=== PATIENT | female | born 1950 | race Two or more races ===

== ENCOUNTER → 2017-06-18 | Outpatient (CLI) | payer OTHER ==
[~2017-06-18] VITALS: Ht 165.1 cm; Wt 95.3 kg
[~2017-06-18] MED LIST: D5W 5% IV SCH; DIPYRIDAMOLE (5MG/ML) 10 ML VIAL IV ONE; DIPYRIDAMOLE IV SCH
== END | disposition home or self-care (01) ==
LOC: Rad HDHVI 08:14
PROVIDERS: ATTEND Internal Medicine Cardiovascular Disease
DX: I12.9 Hypertensive chronic kidney disease with stage 1 through stage 4 chronic kidney disease, or unspecified chronic kidney disease (principal); I50.43 Acute on chronic combined systolic (congestive) and diastolic (congestive) heart failure; I25.10 Atherosclerotic heart disease of native coronary artery without angina pectoris; E11.9 Type 2 diabetes mellitus without complications; R94.31 Abnormal electrocardiogram [ECG] [EKG]; Z98.61 Coronary angioplasty status
CPT/HCPCS: 78452; 93005; 96374; 96375; A9500; J1245